=== PATIENT | male | born 1990 | race African-American/Black ===

== ENCOUNTER 2020-07-11 17:10 | Outpatient (REF) | payer OTHER, SELFPAY | END 2020-07-11 17:11 | disposition home or self-care (01) | LOC: HO.LAB 17:10 | PROVIDERS: PCP Family Medicine; Visit Provider Internal Medicine | DX: Z20.828 Contact with and (suspected) exposure to other viral communicable diseases (principal) | CPT/HCPCS: 36415; 87635 ==